=== PATIENT | female | born 1955 | race Caucasian/White ===

== ENCOUNTER 2017-10-04 15:03 | Observation (INO) | payer OTHER ==
[~2017-10-04] VITALS: Ht 162.6 cm; Wt 64.6 kg
[2017-10-04 15:12] VITALS: Ht 162.6 cm; Wt 64.6 kg
[2017-10-04] MEDS ORDERED: LIPI10 PO (15:31)
[2017-10-04] MEDS ORDERED: HYDROCHLOROTH12.5 M2 PO (15:32)
[2017-10-04] MEDS ORDERED: PANTOPRAZOLE SO40 M1 PO (15:32)
[2017-10-04 15:55] LABS: BASOPHIL % 0.6 % (0-2); PLATELET COUNT 213 x10^3mcL (130-400); RED CELL DISTRIBUTION WIDTH 13.3 % (11.5-14.5)
[2017-10-04 16:03] LABS: CALCIUM 8.6 mg/dL (8.5-10.1); CARBON DIOXIDE 29.2 mmol/L (21-32); CHLORIDE SERUM 105 mmol/L (98-107); CREATININE SERUM 0.8 mg/dL (0.6-1.0); GFR1 > 60 mL/min; GLUCOSE SERUM 85 mg/dL (74-106); POTASSIUM SERUM 3.2 mmol/L (3.5-5.1); SODIUM SERUM 143 mmol/L (136-145)
[2017-10-04 16:09] LABS: ALBUMIN 4.2 g/dL (3.4-5.0); ALKALINE PHOSPHATASE 81 U/L (46-116); ALT/SGPT 40 U/L (14-59); AST/SGOT 43 U/L (15-37); BILIRUBIN TOTAL 0.41 mg/dL (0.20-1.00)
[2017-10-04 17:26] LABS: CHOLESTEROL/HDL RATIO 3.3; MAGNESIUM 2.2 mg/dL (1.8-2.4); PHOSPHOROUS 3.5 mg/dL (2.5-4.9)
[2017-10-04 17:33] LABS: T3 TOTAL 0.99 ng/mL
[2017-10-04 17:36] LABS: FREE T4 0.99 ng/dL (0.76-1.46); FREE THYROXINE INDEX 2.5 ug/dL (1.4-4.5); T4(THYROXINE) 7.7 ug/dL (4.7-13.3)
[2017-10-04 17:57] VITALS: BP 174/88
[2017-10-04 20:18] VITALS: BP 109/68
[2017-10-04 20:33] VITALS: BP 117/71
[2017-10-04 20:56] LABS: microscopic required? YES; urine erythrocyte TRACE (NEGATIVE)
[2017-10-04 21:05] LABS: AMPHETAMINE QUAL UR NONE DETECTED (NEG <=1000)
[2017-10-05 06:26] LABS: CARBON DIOXIDE 26.8 mmol/L (21-32); CHLORIDE SERUM 108 mmol/L (98-107); CREATININE SERUM 0.7 mg/dL (0.6-1.0); GFR1 > 60 mL/min; GLUCOSE SERUM 92 mg/dL (74-106); MAGNESIUM 2.2 mg/dL (1.8-2.4); PHOSPHOROUS 3.7 mg/dL (2.5-4.9); POTASSIUM SERUM 3.6 mmol/L (3.5-5.1); SODIUM SERUM 145 mmol/L (136-145)
[2017-10-05 06:43] LABS: BASOPHIL % 0.8 % (0-2); PLATELET COUNT 188 x10^3mcL (130-400); RED CELL DISTRIBUTION WIDTH 13.8 % (11.5-14.5)
[2017-10-05 06:45] VITALS: BP 101/60
[2017-10-05 10:35] VITALS: BP 98/57
[2017-10-05 14:35] VITALS: BP 106/64
[2017-10-05 16:17] VITALS: BP 106/64
== END 2017-10-05 16:44 | disposition home or self-care (01) | DRG 391 ==
LOC: ED 15:03 → DU 16:57 → EDBEDREQ 16:57 → DU 16:57
PROVIDERS: Emergency Medicine; Family Medicine
DX: K21.9 Gastro-esophageal reflux disease without esophagitis (principal); N17.0 Acute kidney failure with tubular necrosis; I16.0 Hypertensive urgency; E87.6 Hypokalemia; E78.5 Hyperlipidemia, unspecified; Z87.11 Personal history of peptic ulcer disease; Z68.24 Body mass index [BMI] 24.0-24.9, adult
CPT/HCPCS: 83880; 84439; G0378; J3490; J7030